=== PATIENT | male | born 1995 | race Caucasian/White ===

== ENCOUNTER 2018-07-06 17:53 | Emergency (ER) | payer BC, SELFPAY ==
[2018-07-06 17:58] VITALS: BP 139/67; PULSE 75; RESP 16; TEMP 37.2; O2SAT 96
--- NOTE | 2018-07-06 18:05 | DI.RAD_ITS ---
SYMPTOM/DIAGNOSIS: ATRAUMATIC RT NECK PAIN. C-SPINE: The vertebral bodies are intact. The disc spaces are well maintained. There is normal alignment of the vertebra. Soft tissues are unremarkable. The neural canal is widely patent throughout. The odontoid is intact and is closely applied to the anterior arch of C1. SUMMARY: No evidence of a fracture or dislocation.
--- NOTE | 2018-07-06 18:08 | ED.GENADUL_ITS ---
Discharge Plan Discharge Details Chief Complaint: Nk/Back Pain ED Provider: Vasile Pandey Medical Decision Making 23-year-old male presents with left anterior neck pain that was insidious in onset yesterday. He is afebrile and well-appearing. Diagnosis includes torticollis versus underlying bony abnormality or malalignment. Patient given ibuprofen and referred for Xray which does not reveal acute underlying bony injury. I will trial a small number of baclofen for home. Discussed the patient no additional medications other than [id number] NSAIDs. Stable for discharge home and understands return precautions to the ER. HPI General Mode of arrival: ambulatory . Date/Time Provider Initiated Documentation: 07/06/18 17:59 . Limitations to Documentation: no limitations . Information obtained by: patient and family . HPI Narrative: Left neck pain: 23-year-old male states he woke with left neck pain that worsened throughout the day yesterday. Denies Angela trauma or injury. It is dull, achy, worse with movement of the head towards the left. He has had no numbness, tingling, weakness of the upper extremity. He denies any recent illness. General Stated Complaint: Nk/Back Pain BEBETO: 4 Review of Systems Review of Systems 6 systems reviewed and otherwise negative [facility] Social History Smoking/Tobacco Use Status: Current every day Exam Narrative Exam Narrative: GEN: awake, alert, oriented 3. Pleasant, well groomed, interactive. HEAD: Normocephalic, atraumatic NECK: There is left anterior sternocleidomastoid tenderness and spasm present. No posterior or midline tenderness, step-off, or deformity ENT: Mucous membranes moist, oropharynx unremarkable, External ear exam unremarkable EYES: PERRL, EOMI NECK: Full ROM, no YINKA, no menigismus CHEST/RESP: Nontender, clear to auscultation bilateral, no wheeze/rhonchi/rales CARDIOVASCULAR: RRR, no murmur, rub francheska. 2+ Rad pulse bilateral ABDOMEN: Soft, nontender, no mass. +Bowel sounds EXT: Full ROM, no edema, no rash Neuro: Grossly normal neurologic exam, conversant, interactive. Psych: Speech fluent, thoughts congruent, affect normal Course Vital Signs Temperature 37.2 C 07/06/18 17:58 Pulse 75 07/06/18 17:58 Respiratory Rate 16 07/06/18 17:58 Blood Pressure 139/67 07/06/18 17:58 Pulse Oximetry 96 07/06/18 17:58 Temperature 37.2 C 07/06/18 17:58 Pulse 75 07/06/18 17:58 Respiratory Rate 16 07/06/18 17:58 Respiratory Effort 07/06/18 18:00 Blood Pressure 139/67 07/06/18 17:58 Blood Pressure Position Sitting 07/06/18 17:58 Pulse Oximetry 96 07/06/18 17:58 Oxygen Delivery Method Room Air 07/06/18 17:58 Oxygen Flow Rate 0 07/06/18 17:58 Pain Level 5 07/06/18 18:02
[2018-07-06] MEDS: Ibuprofen 800 MG TAB PO (18:10)
--- NOTE | 2018-07-06 18:53 | DI.VRAD_ITS ---
EXAM: XR Cervical Spine, 2 or 3 Views CLINICAL HISTORY: 23 years old, male; Pain; Neck pain; Additional info: Atraumatic, r sided, pain for two days TECHNIQUE: Frontal and lateral views of the cervical spine. COMPARISON: No relevant prior studies available. FINDINGS: Vertebrae: No acute pathology. No definite fracture. Normal alignment. Disc spaces: No acute findings. No significant narrowing. Soft tissues: Unremarkable. IMPRESSION: No acute bony pathology. Dictated and Authenticated by: Yuli Buckner MD. Ordering:SAMY MORAN MD
[2018-07-06 19:24] VITALS: BP 139/67; PULSE 75; RESP 16; TEMP 37.2; O2SAT 96
[2018-07-06] MEDS: Baclofen 10 MG TAB PO (19:24)
== END 2018-07-06 19:25 | disposition home or self-care (01) ==
LOC: ER 19:28
PROVIDERS: Emergency Provider Emergency Medicine
DX: M43.6 Torticollis (principal)
CPT/HCPCS: 99283; 72040

== ENCOUNTER 2018-11-02 13:46 | Emergency (ER) | payer BC, SELFPAY ==
[2018-11-02 13:51] VITALS: BP 129/73; PULSE 80; RESP 12; TEMP 37.3; O2SAT 98
--- NOTE | 2018-11-02 13:58 | W.ED.GENAD ---
Discharge Plan Disposition Patient Disposition: HOME Condition: Stable Discharge Details Chief Complaint: Nk/Back Pain Clinical Impression: Strain of right trapezius muscle Primary Care Provider: None,None ED Provider: Leo Augustin Home Meds and New Rx's Prescriptions: New cyclobenzaprine 10 mg tablet 10 mg PO TID PRN (Reason: muscle spasm) Qty: 20 RF: 0 No Action acetaminophen [Tylenol Extra Strength] 500 mg Tablet 1,000 mg PO Q6H PRNRF: 0 ibuprofen 200 mg Tablet 600 mg PO QID PRNRF: 0 Discharge Instructions Instructions: Cervical Strain (ED) Additional Instructions: You seem to have a trapezius strain causing your symptoms follow up with your primary care provider and physical therapy. you can take 1000mg tylenol and 600mg ibuprofen every 6 hours for pain as needed if you have new symptoms such as fevers with severe headaches, difficulty swallowing or breathing return to the emergency department Stand Alone Forms: Physical Therapy Referral Medical Decision Making 23 yo male who denies chronic medical problems comes in with chief complaint of neck pain for about a month. He denies any trauma or falls, no fevers, vomit. He has no meningismus on exam and has no fevers so doubt culture manager infection. Has pain throughout the right trapeziusm muscle especially when looking to the right. HE apparently has to look down and to the sides at work a lot which is likely leading to neck strain and repetivie injury. Will have him take nsaids, tylenol and muscle relaxers and refer to PT and advised f/u with pcp and return precautions given Differential Diagnosis overuse injury, repettive motion injury, neck strain HPI General Mode of arrival: ambulatory. Date/Time Provider Initiated Documentation: 11/02/18 13:50. Limitations to Documentation: no limitations. Information obtained by: patient. History of Present Illness 23 year old M presents to the emergency department with the chief complaint of right sided neck pain, described as mild and moderate, with intensity rated at 4. Quality is described as aching, Patient started experiencing this month(s) (1) and it has been intermittent. Rest improves symptom(s), Other factors that worsen symptoms (looking to the right) . Patient notes no other symptoms.. Patient did receive the following treatments prior to arrival, other (tylenol) Related Data Home Medications Medication Instructions Recorded Confirmed acetaminophen [Tylenol Extra 1,000 mg PO Q6H PRN 11/02/18 11/02/18 Strength] cyclobenzaprine 10 mg PO TID PRN #20 tab 11/02/18 ibuprofen 600 mg PO QID PRN 11/02/18 11/02/18 Previous Rx's Medication Instructions Recorded cyclobenzaprine 10 mg PO TID PRN #20 tab 11/02/18 Allergies Allergy/AdvReac Type Severity Reaction Status Date / Time No Known Allergies Allergy Unverified 11/02/18 13:54 General Stated Complaint: Nk/Back Pain BEBETO: 5 Review of Systems Review of Systems All systems reviewed & are unremarkable except as noted in HPI and below Constitutional Denies chills, Denies fever(s) and Denies weakness Eyes Denies loss of vision ENT Denies change in voice Cardiovascular Denies chest pain and Denies dyspnea Respiratory Denies dyspnea Gastrointestinal Denies abdominal pain, Denies nausea and Denies vomiting Musculoskeletal Denies joint swelling Integumentary/Breasts Denies rash Neurologic Denies loss of vision and Denies weakness PFS Social History Smoking/Tobacco Use Status: Current every day Exam Const General: no acute distress Orientation: alert HENMT Head: normal to inspection Ears: external ears normal General nose exam: external nose normal Mouth: moist mucous membranes Eyes General: appearance normal, both eyes and all related structures Neck Neck: normal visual inspection and no lymphadenopathy Resp Effort & Inspection: normal respiratory effort and able to speak in complete sentences Cardio Rate: regular rate Skin General skin exam: no rashes or lesions noted Neuro General: alert and oriented x3 Extrem General: normal to inspection Psych Mental Status: mental status grossly normal Course Vital Signs Temperature 37.3 C 11/02/18 13:51 Pulse 80 11/02/18 13:51 Respiratory Rate 12 11/02/18 13:51 Blood Pressure 129/73 11/02/18 13:51 Pulse Oximetry 98 11/02/18 13:51 Temperature 37.3 C 11/02/18 13:51 Temperature Source Temporal Artery Scan 11/02/18 13:51 Pulse 80 11/02/18 13:51 Respiratory Rate 12 11/02/18 13:51 Respiratory Effort Non-Labored 11/02/18 13:53 Blood Pressure 129/73 11/02/18 13:51 Blood Pressure Position Sitting 11/02/18 13:51 Pulse Oximetry 98 11/02/18 13:51 Pain Level 8 11/02/18 13:51
--- NOTE | 2018-11-02 14:03 | ED.GENADUL_ITS ---
Discharge Plan Disposition Patient Disposition: HOME Condition: Stable Discharge Details Chief Complaint: Nk/Back Pain Clinical Impression: Strain of right trapezius muscle Primary Care Provider: None,None ED Provider: Leo Augustin Home Meds and New Rx's Prescriptions: New cyclobenzaprine 10 mg tablet 10 mg PO TID PRN (Reason: muscle spasm) Qty: 20 RF: 0 No Action acetaminophen [Tylenol Extra Strength] 500 mg Tablet 1,000 mg PO Q6H PRNRF: 0 ibuprofen 200 mg Tablet 600 mg PO QID PRNRF: 0 Discharge Instructions Instructions: Cervical Strain (ED) Additional Instructions: You seem to have a trapezius strain causing your symptoms follow up with your primary care provider and physical therapy. you can take 1000mg tylenol and 600mg ibuprofen every 6 hours for pain as needed if you have new symptoms such as fevers with severe headaches, difficulty swallowing or breathing return to the emergency department Stand Alone Forms: Physical Therapy Referral Medical Decision Making 23 yo male who denies chronic medical problems comes in with chief complaint of neck pain for about a month. He denies any trauma or falls, no fevers, vomit. 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 Has pain throughout the right trapeziusm muscle especially when looking to the right. HE apparently has to look down and to the sides at work a lot which is likely leading to neck strain and repetivie injury. Will have him take nsaids, tylenol and muscle relaxers and refer to PT and advised f/u with pcp and return precautions given Differential Diagnosis overuse injury, repettive motion injury, neck strain HPI General Mode of arrival: ambulatory . Date/Time Provider Initiated Documentation: 11/02/18 13:50 . Limitations to Documentation: no limitations . Information obtained by: patient . History of Present Illness 23 year old M presents to the emergency department with the chief complaint of right sided neck pain, described as mild and moderate, with intensity rated at 4. Quality is described as aching, Patient started experiencing this month(s) (1) and it has been intermittent. Rest improves symptom(s), Other factors that worsen symptoms (looking to the right) . Patient notes no other symptoms.. Patient did receive the following treatments prior to arrival, other (tylenol) Related Data Home Medications Medication Instructions Recorded Confirmed acetaminophen [Tylenol Extra 1,000 mg PO Q6H PRN 11/02/18 11/02/18 Strength] cyclobenzaprine 10 mg PO TID PRN #20 tab 11/02/18 ibuprofen 600 mg PO QID PRN 11/02/18 11/02/18 Previous Rx's Medication Instructions Recorded cyclobenzaprine 10 mg PO TID PRN #20 tab 11/02/18 Allergies Allergy/AdvReac Type Severity Reaction Status Date / Time No Known Allergies Allergy Unverified 11/02/18 13:54 General Stated Complaint: Nk/Back Pain BEBETO: 5 Review of Systems Review of Systems All systems reviewed & are unremarkable except as noted in HPI and below Constitutional Denies chills, Denies fever(s) and Denies weakness Eyes Denies loss of vision ENT Denies change in voice Cardiovascular Denies chest pain and Denies dyspnea Respiratory Denies dyspnea Gastrointestinal Denies abdominal pain, Denies nausea and Denies vomiting Musculoskeletal Denies joint swelling Integumentary/Breasts Denies rash Neurologic Denies loss of vision and Denies weakness PFS Social History Smoking/Tobacco Use Status: Current every day Exam Const General: no acute distress Orientation: alert HENMT Head: normal to inspection Ears: external ears normal General nose exam: external nose normal Mouth: moist mucous membranes Eyes General: appearance normal, both eyes and all related structures Neck Neck: normal visual inspection and no lymphadenopathy Resp Effort & Inspection: normal respiratory effort and able to speak in complete sentences Cardio Rate: regular rate Skin General skin exam: no rashes or lesions noted Neuro General: alert and oriented x3 Extrem General: normal to inspection Psych Mental Status: mental status grossly normal Course Vital Signs Temperature 37.3 C 11/02/18 13:51 Pulse 80 11/02/18 13:51 Respiratory Rate 12 11/02/18 13:51 Blood Pressure 129/73 11/02/18 13:51 Pulse Oximetry 98 11/02/18 13:51 Temperature 37.3 C 11/02/18 13:51 Temperature Source Temporal Artery Scan 11/02/18 13:51 Pulse 80 11/02/18 13:51 Respiratory Rate 12 11/02/18 13:51 Respiratory Effort Non-Labored 11/02/18 13:53 Blood Pressure 129/73 11/02/18 13:51 Blood Pressure Position Sitting 11/02/18 13:51 Pulse Oximetry 98 11/02/18 13:51 Pain Level 8 11/02/18 13:51
== END 2018-11-02 14:21 | disposition home or self-care (01) ==
LOC: ER 14:21
PROVIDERS: Emergency Provider Emergency Medicine
DX: S46.811A Strain of other muscles, fascia and tendons at shoulder and upper arm level, right arm, initial encounter (principal); X50.3XXA Overexertion from repetitive movements, initial encounter
CPT/HCPCS: 99283

== ENCOUNTER 2018-11-25 01:03 | Outpatient (CLI) | payer BC, SELFPAY ==
--- NOTE | 2018-11-25 12:50 | DI.RAD_ITS ---
SYMPTOMS/DIAGNOSIS: INSTABILITY, POSITIVE LOAD AND SHIFT TEST, M25.311, ? H[place]- SACHS LESION RIGHT SHOULDER: Five views. The technologist's marker overlies the acromioclavicular joint on both the internal and external views of the shoulder. The patient may return for repeat images at no additional expense and at their convenience. No bone or joint abnormality is identified. The soft tissues are unremarkable.
== END 2018-11-25 01:23 ==
PROVIDERS: Visit Provider Physician Assistant Medical
DX: M25.311 Other instability, right shoulder (principal); M25.511 Pain in right shoulder
CPT/HCPCS: 73030

== ENCOUNTER 2018-11-28 16:50 | Outpatient (CLI) | payer BC, SELFPAY ==
--- NOTE | 2018-11-28 13:50 | DI.RAD_ITS ---
SYMPTOMS/DIAGNOSIS: INSTABILITY, POSITIVE LOAD AND SHIFT TEST, M25.311, ? H[place]- SACHS LESION RIGHT SHOULDER: Frontal views with internal and external rotation were repeated. No bone or joint abnormality is identified. The soft tissues are unremarkable. The acromioclavicular joint is well maintained. IMPRESSION: Normal examination.
== END 2018-11-28 17:10 ==
PROVIDERS: Visit Provider Physician Assistant Medical
DX: M25.511 Pain in right shoulder (principal); M25.311 Other instability, right shoulder
CPT/HCPCS: 73030

== ENCOUNTER 2019-04-03 08:48 | Day surgery (SDC) | payer BC, SELFPAY ==
[2019-04-03 09:11] VITALS: BP 129/98; PULSE 69; RESP 16; TEMP 35.8; O2SAT 100
--- NOTE | 2019-04-03 09:22 | DI.RAD_ITS ---
SYMPTOM/DIAGNOSIS: SHOULDER INJECTION RIGHT SHOULDER: Fluoroscopy Time: 3.4 sec Fluoroscopy was provided for Dr. Newell in the O.R. for guidance with right shoulder injection. Please see procedure note for details.
[2019-04-03] MEDS: methylPREDNISolone ACETATE 80 MG/ML VIAL (10:10)
--- NOTE | 2019-04-03 10:15 | W.PM.DSUDISC ---
Discharge Plan Disposition Patient Disposition: HOME Condition: Good Discharge Details Reason For Visit: Fluoroscopically guided R shoulder injection Attending Provider: Vasile Newell Primary Care Provider: Fidelia Shahid Home Meds and New Rx's Prescriptions: Continued prednisone 5 mg tablet 5 mg PO DAILY Qty: 30 RF: 0 acetaminophen [Tylenol Extra Strength] 500 mg Tablet 1,000 mg PO Q6H PRNRF: 0 ibuprofen 200 mg Tablet 600 mg PO QID PRNRF: 0 cyclobenzaprine 10 mg tablet 10 mg PO TID PRN (Reason: muscle spasm) Qty: 20 RF: 0 Discharge Instructions Additional Instructions: Rest R shoulder for next 48 hours. Apply ice to R shoulder 4 times/day for 1 hour each time over next 48 hours. On Wed , resume all activities as tolerated. Take ibuprofen 800 mg (4 tabs) every 6 hours, if needed, for pain. Follow up with in 3-4 weeks. 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
--- NOTE | 2019-04-03 14:44 | ROE_ITS ---
DATE OF PROCEDURE: April 03, 2019 PREOPERATIVE DIAGNOSIS: Torn glenoid labrum, right shoulder. POSTOPERATIVE DIAGNOSIS: Same. PROCEDURE: Fluoroscopically-guided injection right shoulder. ANESTHESIA: Local. SURGEON: Vasile Newell M.D. INDICATIONS: This is a 23-year-old white male with chronic right shoulder pain that so far has not r esponded to conservative treatment. Examination was suggestive of an intraarticular process, specifi yoana a labral tear, causing his discomfort. The patient would like to avoid surgery if possible. I recommended an intraarticular shoulder injection of steroid to see if his symptoms can get calmed do wn and he can avoid surgery. The risks and complications of the procedure were explained to the everton ent in detail preoperatively. PROCEDURE: The patient was taken to the Operating Room on 04/03/19. He was placed supine on the oper ating table. Ring forceps was placed over the anterior shoulder and the C-arm was used to center the ring forceps over the shoulder joint. A pen was used to noe the outline of the ring forceps. The skin was prepped with alcohol and then an 18 gauge spinal needle was inserted through the skin and st raight down into the shoulder joint. Position of the needle tip in the shoulder joint was confirmed with the C-arm. I then injected into the right shoulder approximately 18 cc's of 0.5% Marcaine with an epinephrine solution along with 80 mg of Depo-Medrol. Further confirmation that the needle was in the joint occurred while I was injecting fluid into the joint. I was able to pull back on the needl e and freely withdraw the fluid that was injected. This confirmed that I was in the shoulder joint. When the full amount was injected in the shoulder joint the spinal needle was removed. The puncture wound was dressed with a Bandaid. I then passively moved his shoulder to circulate the medicine. Concepcóin sheets had good relief of pain. He was discharged to the Day Surgery Unit in good condition. He was given instructions to rest his shoulder for 48 hours. He should apply ice to the shoulder fou r times a day for an hour each time to prevent reaction to the steroid. He will take ibuprofen 800 m g p.o. q6h p.r.n. for discomfort. He may resume activities as tolerated after 48 hours. He should f ollow-up with me in 3 to 4 weeks.
== END 2019-04-03 10:33 | disposition home or self-care (01) ==
PROVIDERS: PCP Physician Assistant Medical; Visit Provider Orthopaedic Surgery
PROC: (CPT 20610; principal; 2019-04-03 10:00)
DX: S43.431A Superior glenoid labrum lesion of right shoulder, initial encounter (principal); G89.29 Other chronic pain; M25.511 Pain in right shoulder; X58.XXXA Exposure to other specified factors, initial encounter
CPT/HCPCS: 20610; 77002; 76000; 73020; J1040